=== PATIENT | male | born 1940 | race Caucasian/White ===

== ENCOUNTER 2017-09-15 10:24 | Emergency (ER) | payer MEDICARE, BC ==
[2017-09-15 11:39] LABS: Hemoglobin 12.6 g/dL (14.0-18.0); Mean Corpuscular HGB CONC 31.4 g/dL (32.0-36.0); Mean Corpuscular Hemoglobin 24.3 pg (27.0-31.0); Mean Corpuscular Volume 77.6 fl (80.0-94.0); Mean Platelet Volume 7.3 fL (7.4-10.4); Platelet Count 241 thou/uL (130-400); RBC Distribution Width 17.7 % (11.5-14.5); Red Blood Cell (RBC) Count 5.17 mill/uL (4.70-6.10); White Blood Cell (WBC) Count 8.2 thou/uL (4.8-10.8)
--- NOTE | 2017-09-15 11:40 | RAD ---
PORTABLE CHEST: HISTORY: Cough. COMPARISON: 01/29/14. FINDINGS: The lungs are clear. Fascial markings normal. Heart and mediastinum unremarkable. IMPRESSION: Unremarkable portable chest. POS: [facility]
[2017-09-15 11:46] LABS: Anion Gap 15 mmol/L (10-20); BUN (Urea Nitrogen) 17 mg/dL (8.4-25.7); Calc. Creatinine Clearance 0 mL/min (70-130); Carbon Dioxide 21 mmol/L (23-31); Chloride 104 mmol/L (98-107); Estimated GFR-MDRD 56; Glucose 205 mg/dL (83-110); Potassium 3.9 mmol/L (3.5-5.1); Sodium 136 mmol/L (136-145)
[2017-09-15 11:52] LABS: #Eosinphils 0.2 thou/uL (0.0-0.7); #Lymphocytes 0.4 thou/uL (1.20-3.40); #Monocytes 0.5 thou/uL (0.11-0.59); %Basophils 0.5 % (0.0-1.0); %Eosinophils 2.2 % (0.0-10.0); %Lymphocytes 5.3 % (21.0-51.0); %Monocytes 6.2 % (0.0-10.0); %Neutrophils 85.8 % (42.0-75.0); Anisocytosis SLIGHT = 6-15 cells (100X) (0-5/hpf); Hypochromia SLIGHT = 6-15 cells (100X) (0-5/hpf); MDiff Complete? YES; Microcytosis SLIGHT = 6-15 cells (100X) (0-5/hpf); Ovalocytes SLIGHT = 2-5 cells (100X) (0-1/hpf); PLT Morphology Comment Appears Adequate
[2017-09-15 12:19] LABS: Bilirubin Negative (Negative); Blood, Urine Negative (Negative); Clarity Clear (Clear); Glucose, Urine (Dipstick) Negative (Negative); Leukocyte Negative (Negative); Nitrite Negative (Negative); Protein, Urine (Dipstick) Negative (Neg-Trace); pH, Urine 6.5 (5.0-9.0)
== END 2017-09-15 12:30 | disposition home or self-care (01) ==
LOC: SCSER 10:24
DX: J02.9 Acute pharyngitis, unspecified (principal); R19.7 Diarrhea, unspecified; E11.9 Type 2 diabetes mellitus without complications; I10 Essential (primary) hypertension; K21.9 Gastro-esophageal reflux disease without esophagitis; Z87.01 Personal history of pneumonia (recurrent); Z86.718 Personal history of other venous thrombosis and embolism; Z87.891 Personal history of nicotine dependence; Z79.01 Long term (current) use of anticoagulants; Z79.899 Other long term (current) drug therapy
CPT/HCPCS: 71045; 80048; 81003; 85025; 85610; 96360

== ENCOUNTER 2018-05-28 14:21 | Outpatient (CLI) | payer MEDICARE ==
[2018-05-28 15:33] LABS: ALT (SGPT) 21 U/L (8-55); AST (SGOT) 20 U/L (5-34); Albumin 4.2 g/dL (3.4-4.8); Alkaline Phosphatase 74 U/L (40-150); Anion Gap 10 mmol/L (10-20); BUN (Urea Nitrogen) 20 mg/dL (8.4-25.7); Bilirubin, Total 0.7 mg/dL (0.2-1.2); Calc. Creatinine Clearance 0 mL/min (70-130); Calcium 9.8 mg/dL (7.8-10.44); Carbon Dioxide 29 mmol/L (23-31); Chloride 105 mmol/L (98-107); Estimated GFR-MDRD 48; Glucose 134 mg/dL (83-110); Potassium 3.9 mmol/L (3.5-5.1); Protein, Total 7.2 g/dL (5.8-8.1); Sodium 140 mmol/L (136-145)
== END 2018-05-28 14:22 | disposition home or self-care (01) ==
LOC: LABBT 14:21
PROVIDERS: ATTEND Internal Medicine Cardiovascular Disease
DX: Z01.812 Encounter for preprocedural laboratory examination (principal); R07.9 Chest pain, unspecified
CPT/HCPCS: 80053

== ENCOUNTER → 2018-05-29 | Day surgery (SDC) | payer MEDICARE ==
[2018-05-28 15:04] VITALS: BMI 30.7
[~2018-05-29] MED LIST: Diazepam 5 MG TAB ONE; Heparin 10,000 UNITS/1 ML VIAL ONE; Iopamidol 370 76% 100 ML VIAL ONE; Lidocaine 1% (PF) 30 ML VIAL ONE; Midazolam HCl 2 mg/2 ml Vial ONE; Nitroglycerin 100MG/250ML BOT 0 ML ONE
[2018-05-29 07:37] LABS: INR-International Normal Ratio 1.2; Prothrombin Time 15.7 SEC (12.0-14.7)
[2018-05-29 07:39] LABS: PTT 20.9 SEC (22.9-36.1)
[2018-05-29 07:55] LABS: Anion Gap 13 mmol/L (10-20); BUN (Urea Nitrogen) 17 mg/dL (8.4-25.7); Calc. Creatinine Clearance 62 mL/min (70-130); Carbon Dioxide 23 mmol/L (23-31); Chloride 106 mmol/L (98-107); Estimated GFR-MDRD 49; Potassium 3.6 mmol/L (3.5-5.1); Sodium 138 mmol/L (136-145)
[2018-05-29 07:56] LABS: ALT (SGPT) 21 U/L (8-55); AST (SGOT) 22 U/L (5-34); Alkaline Phosphatase 68 U/L (40-150); Bilirubin, Total 0.6 mg/dL (0.2-1.2); Calcium 9.1 mg/dL (7.8-10.44); Globulin 2.9 g/dL (2.4-3.5); Glucose 155 mg/dL (83-110); Protein, Total 6.9 g/dL (5.8-8.1)
--- NOTE | 2018-05-29 20:51 | DIS ---
DATE OF ADMISSION: 05/29/2018 DATE OF DISCHARGE: 05/29/2018 DISCHARGE DIAGNOSES: 1. Coronary artery disease. 2. Hypertension. 3. Diabetes mellitus. 4. History of pulmonary embolus. This patient is a pleasant 77-year-old gentleman who presented for evaluation of chest discomfort. T he patient reported having chest pain with and without exertion. The patient underwent a PET scan wh ich was probably normal with diaphragmatic attenuation. The patient because of persistent discomfort was admitted for further evaluation. HOSPITAL COURSE: On 05/29/2018, the patient underwent a left heart catheterization and was found to have normal left ventricular ejection fraction 60%-65%. The LAD had a 20% in-stent restenosis. The first diagonal branch had a 40% stenosis in the free of significant disease. The patient was f elt to have only mild to moderate coronary artery disease. The patient is being placed on medical erapy. DISCHARGE MEDICATIONS: Include alprazolam 2 at bedtime, Norvasc 5 daily, Lipitor 20 at bedtime, doxe pin 50 daily, Prozac 40 at bedtime, folate 1 mg daily, Lasix 40 daily, gabapentin 300 t.i.d., glyburi de 5 q.a.m., losartan 100 daily and methotrexate. Also, Protonix 40 daily, propranolol 80 b.i. d., Seroquel 25 at bedtime, Coumadin 5 mg at bedtime and Sumatriptan 100 mg p.o. p.r.n.
== END ==
LOC: CCL 06:54
PROVIDERS: ATTEND Internal Medicine Cardiovascular Disease
PROC: 4A023N7 Measurement of Cardiac Sampling and Pressure, Left Heart, Percutaneous Approach (ICD-10-PCS; principal; 2018-05-29)
PROC: B2111ZZ Fluoroscopy of Multiple Coronary Arteries using Low Osmolar Contrast (ICD-10-PCS; 2018-05-29)
DX: I25.119 Atherosclerotic heart disease of native coronary artery with unspecified angina pectoris (principal); I10 Essential (primary) hypertension; E11.9 Type 2 diabetes mellitus without complications; E78.2 Mixed hyperlipidemia; Z86.711 Personal history of pulmonary embolism; Z79.01 Long term (current) use of anticoagulants; Z79.84 Long term (current) use of oral hypoglycemic drugs; Z79.899 Other long term (current) drug therapy; Z88.8 Allergy status to other drugs, medicaments and biological substances; Z95.5 Presence of coronary angioplasty implant and graft
CPT/HCPCS: 80053; 85610; 85730; 93458; C1769; 99152; J1644; J2001; J2250